=== PATIENT | female | born 1950 | race Caucasian/White ===

== ENCOUNTER → 2017-05-11 | Outpatient (CLI) | payer MEDICARE ==
[~2017-05-11] MED LIST: REGADENOSON 0.4 MG/5 ML DISP.SYRIN. IV ONE
--- NOTE | 2017-05-11 12:42 | PCVCIMAG ---
APPROVED REPORT Exam: Nuclear Stress Test Indication: CAD , Dyspnea Patient Location: Out-Patient Stress Nurse: Cheryl Melton RN, Grace Kebede RN [place] Tech:Faiza Abraham [facility] Ht: 5 ft 5 in Wt: 160 lbs BSA: 1.80 m2 HR: 67 bpm BP: 136/75 mmHg BMI: 26.6 Rhythm: SR, First degree AV Block Medical History Medical History: Hyperlipidemia, HTN, Age, Former Smoker Medications: ASA, Atorvastatin, Bentyl, Ramipril, Allergies: Codeine Previous Cardiac Procedures: PCI Pretest Chest Pain Characteristics: No chest pain Exercise History: Physically active Physical Disabilities: physical limitations. Stress Test Details Stress Test: Pharmacologic stress was paired with low level exercise. Reason for pharmacologic stress test: physical limitation. HR Resting HR: 67 bpmMax Heart Rate (APMHR): 152 bpm Max HR Achieved: 98 bpmTarget HR (85% APMHR): 129 bpm % of APMHR: 64 Recovery HR: 81 bpm BP Resting BP: 136/75 mmHg Max BP: 132/80 mmHg ECG Resting ECG: Sinus Rhythm, 1st degree AV block Stress ECG: Sinus Rhythm, 1st degree AV block ST Change: Non-ischemic Recovery ECG: Sinus Rhythm, 1st degree AV block Clinical Reason for Termination: Completed protocol Stress Symptoms: Nausea, Dizziness Exercise duration: 2 min 08 sec Symptoms resolved during recovery. NM EXAM: Myocardial Perfusion REST/STRESS Imaging Protocol: Rest Tc-99m/Stress Tc-99m 1 day Resting Data Rest SPECT myocardial perfusion imaging was performed in supine position 45 minutes following the intravenous injection of 10.6 mCi of Tc-99m Sestamibi. Time of rest injection: 929 Date: 05/11/2017 Administration Route: IV Administration Site: Right AC Pharmacologic Stress Pharmacologic stress test was performed by injecting Regadenoson 0.4 mg IV push followed by the intravenous injection of 34.9 mCi of Tc-99m Sestamibi. Time of stress injection: 0 Date: 05/11/2017 Administration Route: IV Administration Site: Right AC Gated Stress SPECT was performed 45 minutes after stress injection. The images were gated to evaluate regional wall motion and calculate left ventricular ejection fraction. Study Quality Study: Good Study Data Post stress, the left ventricular ejection was 86%.. SSS: 4 SRS: 3 SDS: 2 TID = 0.89. Perfusion Normal left ventricular perfusion. Normal perfusion on both the stress and rest images. Wall Motion Normal left ventricular wall motion. Nuclear Conclusion ECG Findings: non-ischemic Clinical Findings: non-diagnostic Nuclear Findings: negative for ischemia This study is of low probability for inducible ischemia or prior infarct. Normal global and segmental LV systolic function.
== END | disposition home or self-care (01) ==
LOC: PCVCIMAG 09:14
PROVIDERS: ATTEND Internal Medicine Cardiovascular Disease
DX: I25.10 Atherosclerotic heart disease of native coronary artery without angina pectoris (principal); R06.00 Dyspnea, unspecified; I10 Essential (primary) hypertension; E78.00 Pure hypercholesterolemia, unspecified; Z79.899 Other long term (current) drug therapy; Z79.82 Long term (current) use of aspirin; I44.0 Atrioventricular block, first degree; Z87.891 Personal history of nicotine dependence
CPT/HCPCS: 78452; 80061; 93005; 93017; A9500; G0463; J2785

== ENCOUNTER → 2018-07-05 | Outpatient (CLI) | payer MEDICARE ==
--- NOTE | 2018-07-05 14:18 | PCVCIMAG ---
APPROVED REPORT Study performed: 07/05/2018 13:20:55 EXAM: Comprehensive 2D, Doppler, and color-flow Echocardiogram Patient Location: Echo lab Room #: 2Status: routine BSA: 1.82 HR: 61 bpmBP: 124/72 mmHg Rhythm: NSR Other Information Study Quality: Excellent Risk Factors: Cardiac Risk Factors: Hyperlipidemia, Smoking Indications CAD S/P [place], stent 2008 2D Dimensions IVSd: 10.91 (7-11mm)LVOT Diam: 18.35 (18-24mm) LVDd: 36.21 mm PWd: 9.86 (7-11mm)Ascending Ao: 29.27 (22-36mm) LVDs: 19.36 (25-40mm) Left Atrium: 25.67 (27-40mm) Aortic Root: 27.01 mm LV Single Plane 4CH: 60.55 % LV Single Plane 2CH: 76.48 % Biplane EF: 70.2 % Volumes Left Atrial Volume (Systole) Single Plane 4CH: 39.99 mLSingle Plane 2CH: 61.53 mL Biplane LA Volume: 52.00 mLLA ESV Index: 29.00 mL/m2 Aortic Valve AoV Peak Noah.: 1.50 m/s AO Peak Gr.: 9.20 mmHgLVOT Max P.64 mmHg LVOT Max V: 1.08 m/s SANGITA Vmax: 1.89 cm2 Mitral Valve E/A Ratio: 1.2 MV Decel. Time: 162.14 ms MV E Max Noah.: 0.66 m/s MV A Noah.: 0.55 m/s IVRT: 76.12 ms TDI E/Lateral E': 7.33E/Medial E': 11.00 Medial E' Noah.: 0.06 m/s Lateral E' Noah.: 0.09 m/s Pulmonary Valve PV Peak Noah.: 1.30 m/sPV Peak Gr.: 6.77 mmHg Pulmonary Vein P Vein S: 0.49 m/sP Vein A: 0.31 m/s P Vein D: 0.40 m/sP Vein A Dur.: 121.1 msec P Vein S/D Ratio: 1.23 Tricuspid Valve TR Peak Noah.: 2.14 m/s TR Peak Gr.: 18.28 mmHg TV Vmax: 0.48 m/sPA Pressure: 25.00 mmHg Left Ventricle The left ventricle is normal size. There is normal LV segmental wall motion. There is normal left ventricular wall thickness. Left ventricular systolic function is normal. The left ventricular ejection fraction is within the normal range. LVEF is 65-70%. Right Ventricle The right ventricle is normal size. The right ventricular systolic function is normal. Atria The left atrium size is normal. The right atrium size is normal. Aortic Valve Aortic valve is trileaflet. Mild aortic valve sclerosis. No aortic regurgitation is present. There is no aortic valvular stenosis. Mitral Valve The mitral valve is normal in structure. There is no mitral valve regurgitation noted. No evidence of mitral valve stenosis. Tricuspid Valve The tricuspid valve is normal in structure. Trace to mild tricuspid regurgitation with a PA pressure of 25 mmHg. Pulmonic Valve The pulmonary valve is normal in structure. Trace pulmonic regurgitation. Great Vessels The aortic root is normal in size. The ascending aorta is normal in size. Aortic arch is normal in caliber. IVC is normal in size and collapses >50% with inspiration. Pericardium There is no pericardial effusion. There is no pleural effusion. <Conclusion> The left ventricle is normal size. There is normal left ventricular wall thickness. Left ventricular systolic function is normal. The right ventricle is normal size. The left atrium size is normal. Mild aortic valve sclerosis. The mitral valve is normal in structure. Trace to mild tricuspid regurgitation with a PA pressure of 25 mmHg.
== END ==
LOC: PCVCIMAG 13:00
PROVIDERS: ATTEND Internal Medicine Cardiovascular Disease
DX: I08.2 Rheumatic disorders of both aortic and tricuspid valves (principal); I25.750 Atherosclerosis of native coronary artery of transplanted heart with unstable angina; E78.5 Hyperlipidemia, unspecified; E78.00 Pure hypercholesterolemia, unspecified; Z95.5 Presence of coronary angioplasty implant and graft; Z79.82 Long term (current) use of aspirin; Z87.891 Personal history of nicotine dependence
CPT/HCPCS: 93005; 93306; G0463